=== PATIENT | male | born 1985 | race Caucasian/White ===

== ENCOUNTER 2022-02-09 08:35 | Emergency (ER) | payer OTHER, BC ==
[2022-02-09] MEDS ORDERED: Sodium Chloride 0.9% 10 ML Syringe FLUSH PRN (08:45)
== END 2022-02-09 09:55 | disposition home or self-care (01) ==
LOC: JP.ED 08:35
DX: S20.211A Contusion of right front wall of thorax, initial encounter (principal); V49.40XA Driver injured in collision with unspecified motor vehicles in traffic accident, initial encounter
CPT/HCPCS: 36415; 71045; 85025; 85610; 99284; J3490